=== PATIENT | female | born 2000 | race Caucasian/White ===

== ENCOUNTER 2022-12-09 05:54 | Inpatient (IN) | payer OTHER ==
[~2022-12-09] VITALS: Ht 157.5 cm; Wt 95.3 kg
[2022-12-09] MEDS ORDERED: PRENATAL TABLE1 EAC1 PO (06:56)
[2022-12-09] MEDS ORDERED: VAZALORE81 MG PO (06:57)
[2022-12-09] MEDS ORDERED: IRON325 MG PO (06:57)
== END 2022-12-11 15:01 | disposition home or self-care (01) | DRG 833 ==
LOC: LDR 05:54 → OB/GYN 10:16 → LDR 10:17 → OB/GYN 12-10 11:10
PROVIDERS: ADMIT Obstetrics & Gynecology; ATTEND Obstetrics & Gynecology
PROC: BT43ZZZ Ultrasonography of Bilateral Kidneys (ICD-10-PCS; principal; 2022-12-09)
PROC: 4A1HXCZ Monitoring of Products of Conception, Cardiac Rate, External Approach (ICD-10-PCS; 2022-12-09)
DX: O26.893 Other specified pregnancy related conditions, third trimester (principal); N20.0 Calculus of kidney; Z3A.33 33 weeks gestation of pregnancy; Z20.822 Contact with and (suspected) exposure to COVID-19

== ENCOUNTER 2022-12-19 16:13 | Outpatient (CLI) | payer OTHER ==
[~2022-12-19 16:13] MED LIST: IRON325 MG PO; PRENATAL TABLE1 EAC1 PO; VAZALORE81 MG PO
== END 2022-12-19 22:00 | disposition home or self-care (01) ==
LOC: OBS/DEL 16:13
PROVIDERS: ATTEND Obstetrics & Gynecology
DX: O26.893 Other specified pregnancy related conditions, third trimester (principal); R55 Syncope and collapse; Z3A.35 35 weeks gestation of pregnancy

== ENCOUNTER 2023-01-09 07:21 | Inpatient (IN) | payer OTHER ==
[~2023-01-09] VITALS: Ht 157.5 cm; Wt 3.2 kg
[2023-01-09] MEDS ORDERED: PRENATAL CAPLE1 EAC1 PO (08:29)
[2023-01-12] MEDS ORDERED: COLACE100 MG PO (12:21)
[2023-01-12] MEDS ORDERED: PERCOCET 5-3251 EACH PO (12:21)
[2023-01-12] MEDS ORDERED: SIMETHICONE80 MG PO (12:21)
[2023-01-12] MEDS ORDERED: IBU800 MG PO (12:21)
== END 2023-01-12 17:25 | disposition home or self-care (01) | DRG 787 ==
LOC: LDR 07:21 → O/R 14:35 → OB/GYN 15:31
PROVIDERS: ADMIT Obstetrics & Gynecology; ATTEND Obstetrics & Gynecology
PROC: 4A1HXCZ Monitoring of Products of Conception, Cardiac Rate, External Approach (ICD-10-PCS; 2023-01-09)
PROC: 10D00Z1 Extraction of Products of Conception, Low, Open Approach (ICD-10-PCS; principal; 2023-01-09 14:00)
DX: O32.1XX0 Maternal care for breech presentation, not applicable or unspecified (principal); O41.03X0 Oligohydramnios, third trimester, not applicable or unspecified; Z3A.38 38 weeks gestation of pregnancy; Z37.0 Single live birth; Z20.822 Contact with and (suspected) exposure to COVID-19

== ENCOUNTER 2023-05-22 01:14 | Emergency (ER) | payer OTHER ==
[~2023-05-22] VITALS: Ht 157.5 cm; Wt 84.4 kg
[~2023-05-22 01:14] MED LIST changes: +COLACE100 MG PO; +IBU800 MG PO; +PERCOCET 5-3251 EACH PO; +PRENATAL CAPLE1 EAC1 PO; +SIMETHICONE80 MG PO
[2023-05-22] MEDS ORDERED: CEPHALEXIN500 MG PO (07:40)
[2023-05-22] MEDS ORDERED: KETO10TA2 PO (07:40)
== END 2023-05-22 07:47 ==
LOC: ER 01:14
DX: N20.1 Calculus of ureter (principal); Z87.442 Personal history of urinary calculi; R11.0 Nausea